=== PATIENT | female | born 1985 | race Caucasian/White ===

== ENCOUNTER → 2024-04-21 10:17 | Outpatient (CLI) | payer BC, SELFPAY ==
--- NOTE | 2024-04-21 10:18 | DI.US.S_ITS ---
PROCEDURE: US OB <= 14 WEEKS FETUS INDICATIONS: dating US OUTSIDE/PRIOR DATING DATA: Last menstrual period (LMP): 02/23/2024. LMP-based estimated date of delivery (LAURA): 11/29/2024. First dating scan (date and location): Today's exam. Estimated date of delivery (LAURA) from first dating scan: 11/26/2024. TECHNIQUE: Real-time scanning was performed of the fetus and maternal pelvic organs, with image documentation. Endovaginal scanning was also performed to better visualize the fetus and maternal ovaries. COMPARISON: None. FINDINGS: Single living intrauterine present. Yolk sac is present. Small perigestational fluid collection measuring 1.4 x 1.2 x 1.4 cm. Embryo: [place]-rump length measures 2.1 cm, corresponding to 8 weeks 5 days. Heart rate: 169 Maternal organs: Ovaries demonstrate a left-sided corpus luteum. IMPRESSION: Single living intrauterine at 8 weeks 5 days, LAURA of 11/26/2024. Small perigestational fluid collection measuring 1.4 x 1.2 x 1.4 cm. We strive to produce accurate, complete, and clear reports of imaging services. To assist us in improving patient care, this report was composed using standard report templates and voice recognition software. Therefore, it may contain abnormal punctuation, insertions and/or omissions. Occasional wrong-word or sound-alike substitutions may occur. Though we review the report and make efforts to correct it, we do recommend that the report be read carefully in proper context to recognize any text inaccuracies. Dictated by: Pj Moore M.D. on 04/21/2024 at 13:48 Approved by: Pj Moore M.D. on 04/21/2024 at 13:49
== END ==
PROVIDERS: PCP Family Medicine; Referring Provider Family Medicine; Visit Provider Family Medicine
DX: Z34.91 Encounter for supervision of normal pregnancy, unspecified, first trimester (principal); Z3A.08 8 weeks gestation of pregnancy
CPT/HCPCS: 76801; 76817